=== PATIENT | male | born 1985 | race Caucasian/White ===

== ENCOUNTER 2021-05-20 22:52 | Emergency (ER) | payer BC, SELFPAY ==
[2021-05-20 22:53] VITALS: BP 126/71; PULSE 97; RESP 18; TEMP 36.9; O2SAT 99
--- NOTE | 2021-05-21 00:07 | ED.LOWEXIN ---
HPI - Extremity Injury (Lower) General Chief Complaint: Extremity Injury, Lower Stated Complaint: my ankles are swelled up and i got a rash Time Seen by Provider: 05/20/21 23:51 Source: patient History of Present Illness HPI Narrative: Patient presents with lower extremity swelling and diffuse rash. Patient reports he has had lower extremity swelling for the past month has not been evaluated for over the past 2 days he developed a rash that is predominant in his lower legs and now spread all over his body. As per history of eczema and this feels different than his prior eczema. Ports he had diffuse rash like this before that is responded to steroids. Denies any shortness of breath chest pain lightheadedness fevers chills or known sick contacts. Patient is unable to identify any new soaps, detergents, clothing he has not had any changes to medications or introduction of new medications. Related Data Allergies Allergy/AdvReac Type Severity Reaction Status Date / Time cyclobenzaprine Allergy Severe Anaphylaxis Verified 05/21/21 00:32 Penicillins Allergy Unknown Unknown Verified 05/21/21 00:32 Review of Systems Review of Systems: CONSTITUTIONAL: Denies fever, chills, or sweats. EYES: Denies visual changes, redness, or discharge. ENT: Denies rhinorrhea, congestion, sore throat, or otalgia. CARDIOVASCULAR: Denies chest pain, palpitations, or edema. RESPIRATORY: Denies cough or dyspnea. GASTROINTESTINAL: Denies abdominal pain, nausea, vomiting, or diarrhea. GENITOURINARY: Denies dysuria or hematuria. SKIN: Diffuse rash that is itchy MUSCULOSKELETAL: Denies back pain, joint pain, or myalgia. NEUROLOGIC: Denies headache, numbness, dizziness, or weakness. PSYCHIATRIC: Denies anxiety or depression. All systems reviewed & are unremarkable except as noted in HPI and below PMFSH Past Medical History Medical History (Updated 05/21/21 @ 00:11 by Stanton Abdalla MD) Eczema Exam Narrative: GENERAL: Well-appearing, well-nourished, and in no acute distress. HEAD: Normocephalic, atraumatic. EYES: PERRLA and EOMI. ENT: Nares clear, no rhinorrhea or epistaxis. Mucous membranes moist. NECK: Supple. No masses. No JVD CHEST: Clear to auscultation. No respiratory distress. No wheezes rales or rhonchi HEART: Regular rate and rhythm. No murmur heard. Normal peripheral pulses. EXTREMITIES: Normal range of motion. No edema. SKIN: Diffuse raised erythematous rash on the legs and the back there is overlying excoriation there are scant abrasions noted on the lower extremities NEURO: No focal deficits. Alert and oriented x3. PSYCH: Normal mood and affect. Course Vital Signs Vital signs: Vital Signs Temperature 36.9 C 05/20/21 22:53 Pulse Rate 97 05/20/21 22:53 Respiratory Rate 18 05/20/21 22:53 Blood Pressure 126/71 05/20/21 22:53 Pulse Oximetry 99 05/20/21 22:53 Temperature 36.9 C 05/20/21 22:53 Pulse Rate 97 05/20/21 22:53 Respiratory Rate 18 05/20/21 22:53 Blood Pressure 126/71 05/20/21 22:53 Pulse Oximetry 99 05/20/21 22:53 MDM - Extremity Injury (Lower) MDM Narrative Medical decision making narrative: H&P as above, vss, pt looks clinically well, exam with diffuse rash with overlying excoriation, additional labs/img considered, symptomatic relief available as needed, on reevaluation pt continues to looks clinically well. Suspect dermatitis, dns SJS, TENS and, anaphylaxis. plan to tx/monitor as op w/ pcm f/u findings/plan discussed with pt, pt agree/comfortable with plan, return precautions given Discharge Plan Discharge Clinical Impression: Dermatitis Patient Disposition: Home, Self-Care Condition: Improved Instructions: Antibiotic Form Additional Instructions: Please return if your symptoms worsen or fail to improve. If you develop a fever, can not eat/drink anything or if you have any other concerns. Prescriptions: New prednisone 50 mg tablet 50 mg PO DAILY Qty: 4 RF: 0
--- NOTE | 2021-05-21 00:32 | PC.NURSE ---
Pt not in room at time of discharge and medical parasitologist as ordered. Per INTAKE nurse saw pt ambulating out for a cigarette and plans to return to room when done.
--- NOTE | 2021-05-21 00:38 | PC.NURSE ---
this patient called asking for rx to be sent to pharmacy. per primary rn, dc, pt left without d/c paperwork and rx. pt told by this rn that they were more than welcome to come pick up man paperwork and rx.
== END 2021-05-21 01:32 | disposition home or self-care (01) ==
PROVIDERS: Emergency Provider Emergency Medicine
DX: L30.9 Dermatitis, unspecified (principal)
CPT/HCPCS: 99283